=== PATIENT | male | born 1950 | race Caucasian/White ===

== ENCOUNTER 2016-12-02 18:06 | Emergency (ER) | payer OTHER ==
[~2016-12-02] VITALS: Ht 167.6 cm; Wt 111.4 kg
[2016-12-02 18:13] VITALS: BP 153/92; PULSE 89; RESP 20; O2SAT 97
--- NOTE | 2016-12-02 19:35 | ED.REPORT ---
HPI-Abd Pain M 40 and Over Date of Service Dec 02, 2016 ED Provider: Mine Diaz History of Present Illness: 66-year-old male here for right lower quadrant pain. He has had it for 4 month. He was seen this [facility] [place] ago. Sounds like get a full workup and was diagnosed with a muscular strain. He was given muscle relaxer but it has only gotten worse in the meantime. No nausea, vomiting, diarrhea, constipation, fevers. No shortness of breath, chest pain. No other associated symptoms. It gets worse with movement only specifically going from sitting to standing position Nursing Notes Stated Complaint: LOWER RIGHT SIDE ABDOMINAL PAIN Chief Complaint: Male Abdominal Pain Nursing Notes Reviewed: Yes Allergies: Coded Allergies: No Known Allergies (Unverified , 12/02/16) Scheduled PRN Hydrocodone-Acetaminophen 5-325 mg (Hydrocodone-Acetaminophen 5-325 mg) 1 Each Tablet 1 TABLET PO Q4H PRN PRN For Pain General Time Seen by MD: 19:19 Chief Complaint Abdominal pain Hx Obtained From: Patient, Spouse Arrived By: Walk-in Sudden in Onset?: Yes Onset Occurred: More than a week ago... (4 weeks) Symptom Duration: Constant Location: : Abdomen lower Radiation: : Does not radiate Severity: Current: Mild Severity: Maximum: Severe Pertinent Negative: Pt denies other symptoms Exacerbated by: Certain positions, Movement Recent Healthcare: Recent doctor visit, Prior workup Similar Sx Previous: Yes Review of Systems Basic Review of Systems Eyes: Vision NL, No discharge ENT: Hearing NL, No pain, No nasal congestion, No pharyngeal pain Hematologic: No bleeding, No bruising Skin: No bruising, No rash, No itch Neurologic: NL mental status, No weakness, No numbness Psychiatric: Normal thought content Constitutional: Denies: Chills, Fatigue, Fever, Lethargy, Malaise, Recent wt loss, Weakness - generalized Respiratory: Denies: Dyspnea on exertion, Hemoptysis, Non-productive cough, Parox nocturnal dyspnea, Pleuritic pain, Prod cough, bloody, Prod cough, brown, Prod cough, clear, Prod cough, green, Prod cough, white, Prod cough, yellow, Shortness of breath, Wheezing Cardiovascular: Denies: Chest pain, Dyspnea on exertion, Edema, Orthopnea, Palpitations, Parox nocturnal dyspnea, Syncope GI: Reports: Abdominal pain, Denies: Constipation, Diarrhea, Melena, Mucousy stool, Nausea, Vomiting Male: Denies Dysuria, Denies Flank pain, Denies Hematuria, Denies Penile discharge, Denies Scrotal swelling, Denies Testicular pain, Denies Testicular swelling, Denies Urinary frequency, Denies Urinary urgency, Denies Urination decreased, Denies Urination increased Musculoskeletal: Denies: Back pain Complete sys rev & neg: except as marked. Physical Exam Initial Vital Signs Vital Signs (First) Date Time Temp Pulse Resp B/P Pulse Ox O2 Delivery O2 Flow Rate FiO2 12/02/16 18:13 36.0 89 20 153/92 97 Room Air Initial VS: Reviewed Head / Eyes: Atraumatic, Normocephalic, PERRL ENT: Mucous membranes moist, Conjunctiva normal, No scleral icterus Neck: Supple, Non-tender, Full range of motion Extremities: Vascular intact, Neuro intact, No swelling, No tenderness Skin: Warm, Dry, No cyanosis Neurologic: Alert, Oriented, Nonfocal Psychiatric: Mood/affect normal, Behavior normal, Normal thought content Respiratory / Chest: Breath sounds NL, Breath sounds = bilat, No respiratory distress, No rales, No rhonchi, No wheezing Cardiovascular: Heart rate NL, Regular rhythm, Heart sounds NL, Peripheral circulation NL Abdomen: Atraumatic, Soft Tenderness/Guarding/Rebound: Positive: Tender RLQ... (Mild) pain increases with lifting leg off gurney Tender RLQ. NO scrotal swelling or tenderness, no hernias palpated, no lymphadenopathy. Neurologic: Oriented X3, Speech NL, No motor deficits, No sensory deficits Additional Physical Exam: low back - para spinal musculature tenderness lower lumbar area R side. Lower extremities strong and equal bilaterally. Patellar reflexes 3+ and equal bilaterally. Interpretation & Diagnostics Lab Results Interpretation Result Diagram: 12/02/16 1950 12/02/16 1950 Test 12/02/16 19:50 White Blood Count 9.6th/mm3 (3.8-10.1) Red Blood Count 5.12mil/mm3 (4.40-5.80) Hemoglobin 14.9g/dL (13.8-17.2) Hematocrit 44.4% (41.0-50.0) Mean Corpuscular Volume 86.7fL (81-100) Mean Corpuscular Hemoglobin 29.1pg (27.0-35.0) Mean Corpuscular Hemoglobin Concent 33.6% (32.0-37.0) Red Cell Distribution Width 14.6% (12.3-15.4) Platelet Count 309bil/L (150-400) Neutrophils (%) (Auto) 57.9% (40-74) Lymphocytes (%) (Auto) 28.2% (14-46) Monocytes (%) (Auto) 10.3% (4-12) Eosinophils (%) (Auto) 2.9% (0-5) Basophils (%) (Auto) 0.5% (0-3) Sodium Level 139mEq/L (134-144) Potassium Level 4.0mEq/L (3.5-5.2) Chloride Level 102mEq/L (97-108) Carbon Dioxide Level 22mmol/L (18-29) Blood Urea Nitrogen 16mg/dL (8-27) Creatinine 1.12mg/dL (0.76-1.27) Estimat Glomerular Filtration Rate 70mL/min (>59) Glucose Level 105mg/dL (60-99) Calcium Level 9.3mg/dL (8.5-10.1) Magnesium Level 2.0mg/dL (1.6-2.6) Total Bilirubin 0.2mg/dL (0.0-1.2) Aspartate Amino Transf (AST/SGOT) 23U/L (0-50) Alanine Aminotransferase (ALT/SGPT) 29U/L (0-44) Alkaline Phosphatase 57U/L (25-160) Total Protein 7.2g/dL (6.4-8.4) Albumin 4.1g/dL (3.4-5.0) Lipase 22U/L (13-60) CT Abd / Pelvis Interpretation IMPRESSION: 1. Cholelithasis without wall thickening. 2. Enlarged lymph nodes in the peripancreatic, periportal and iliac regions. While they could be reactive in nature, other etiologies cannot be excluded. Recommend interval followup for further evaluation. 3. Diffuse bladder wall thickening. While this could be secondary to incomplete distention, cystitis should be considered. 4. Prostate hypertrophy is present. Recommend correlation to PSA levels. Re-Eval/Medical Decision Med Decision/Clinical Course not much relief from toradol discussed ct, labs wiht pt. have f/u apt in 2 days. will treat for pain, return if wrose Discharge & Departure Shift Change Sign-Out Laboratory Evaluation: Lab evaluation discussed Imaging Studies: Imaging discussed Procedures: Results discussed Response to Therapy: Improved Primary Impression: Right lower quadrant abdominal pain Additional Impression: Abdominal wall strain Encounter type: subsequent encounter Qualified Code: S39.011D - Strain of muscle, fascia and tendon of abdomen, subsequent encounter Disposition: Home Vital Signs - All Vital Signs Date Time Temp Pulse Resp B/P Pulse Ox O2 Delivery O2 Flow Rate FiO2 12/02/16 21:58 36.5 78 20 142/85 96 Room Air 12/02/16 20:00 36.4 78 20 148/87 97 Room Air 12/02/16 18:13 36.0 89 20 153/92 97 Room Air )( All Prior VS Reviewed: Yes Condition: Stable Patient Instructions: Abdominal Muscle Strain Exercises (GEN), Acute Abdominal Pain (ED) Additional Instructions: Monitor your pain, return if worsening, fever, vomiting, or other concerns. Sometimes muscular pain can take a while to heal, be patient. Use anti inflammatories. Light activity as tolerated. Consider doing physical therapy follow up with your provider this week. You should have your prostate evaluated and findings in your CT scan rechecked (lymph nodes/prostate) Referrals: AZ DUTTON MD (PCP) EDSupervising Provider for APC: Georgia La MD copies to: AZ DUTTON MD, Linnea K ARNP Dec 02, 2016 19:35
[2016-12-02 20:00] VITALS: BP 148/87; PULSE 78; RESP 20; O2SAT 97
[2016-12-02 20:17] LABS: BASOPHILS % (AUTO) 0.5 % (0-3); EOSINOPHILS % (AUTO) 2.9 % (0-5); MONOCYTES % (AUTO) 10.3 % (4-12); Mean Corpuscular Hemoglobin 29.1 pg (27.0-35.0); Mean Corpuscular Volume 86.7 fL (81-100); NEUTROPHILS % (AUTO) 57.9 % (40-74); Platelet Count 309 bil/L (150-400)
--- NOTE | 2016-12-02 21:27 | DRSVH ---
PROCEDURE: CT ABDOMEN AND PELVIS WITH CONTRAST ([id number]) INDICATIONS: rlq pain TECHNIQUE: After the administration of intravenous contrast, 5 mm thick sections acquired from the diaphragm to the symphysis. 5 mm coronal and sagittal reformats were acquired. For radiation dose reduction, the following was used: automated exposure control, adjustment of mA and/or kV according to patient siz e. COMPARISON: None. FINDINGS: Image quality: Excellent. ABDOMEN: Lung bases: Lung bases are clear. Heart size is normal. Solid organs: Liver and spleen are normal in size and enhancement. Hepatic steatosis I is present. Gallbladder demonstrates a large luminal calcification without wall thickening. Biliary system is no n dilated. Pancreas enhances normally. No adrenal nodules. Kidneys demonstrate normal size and enh ancement, without hydronephrosis. Peritoneum and bowel: Bowel loops demonstrate normal wall thickness and caliber. No free fluid or a ir. Appendix is unremarkable. Nodes and vessels: 18 mm peripancreatic lymph node. Multiple, subcentimeter periportal lymph nodes. Bilateral iliac lymph nodes are present, the largest on the right measuring 14 mm. Aorta and inferio r vena cava are normal in size. Miscellaneous: No ventral hernias. PELVIS: Genitourinary: Bladder wall is diffusely thickened and incompletely distended. The prostate gland i s enlarged. Miscellaneous: Fat containing inguinal hernias. Bones: No suspicious bony lesions. No vertebral body compression fractures. L5 pars defect is pres ent with Grade I/II anterolisthesis. IMPRESSION: 1. Cholelithasis without wall thickening. 2. Enlarged lymph nodes in the peripancreatic, periportal and iliac regions. While they could be re active in nature, other etiologies cannot be excluded. Recommend interval followup for further evalu ation. 3. Diffuse bladder wall thickening. While this could be secondary to incomplete distention, cystiti s should be considered. 4. Prostate hypertrophy is present. Recommend correlation to PSA levels. Dictated by: Padma Montes M.D. on 12/02/2016 at 21:09 Approved by: Padma Montes M.D. on 12/02/2016 at 21:26
[2016-12-02] MEDS ORDERED: HYDR-4003 PO (21:42)
[2016-12-02 21:58] VITALS: BP 142/85; PULSE 78; RESP 20; O2SAT 96
== END 2016-12-02 22:00 | disposition home or self-care (01) ==
LOC: SED 18:06
DX: S39.011D Strain of muscle, fascia and tendon of abdomen, subsequent encounter (principal); X50.9XXD Other and unspecified overexertion or strenuous movements or postures, subsequent encounter; Y93.89 Activity, other specified; Y92.89 Other specified places as the place of occurrence of the external cause; Y99.8 Other external cause status
CPT/HCPCS: 36415; 74177; 80053; 81002; 83690; 83735; 84153; 85025; 96374; 99285; J1885; Q9967